=== PATIENT | female | born 1995 | race Two or more races ===

== ENCOUNTER 2023-03-12 13:52 | Outpatient (CLI) | payer OTHER | END 2023-03-12 13:53 | disposition home or self-care (01) | LOC: PRENATAL 13:52 | PROVIDERS: ATTEND Obstetrics & Gynecology Maternal & Fetal Medicine | DX: O36.80X0 Pregnancy with inconclusive fetal viability, not applicable or unspecified (principal); Z36.9 Encounter for antenatal screening, unspecified; Z36.82 Encounter for antenatal screening for nuchal translucency; O34.10 Maternal care for benign tumor of corpus uteri, unspecified trimester; Z3A.12 12 weeks gestation of pregnancy ==

== ENCOUNTER 2023-04-24 14:12 | Emergency (ER) | payer OTHER ==
[~2023-04-24] VITALS: Ht 160 cm; Wt 77.1 kg
[~2023-04-24 14:12] MED LIST: FOLIC ACID0.8 M1; PRENA1 TRUE CO1 EACH
== END 2023-04-24 17:05 | disposition home or self-care (01) ==
LOC: ER 14:14
DX: O26.892 Other specified pregnancy related conditions, second trimester (principal); Z3A.18 18 weeks gestation of pregnancy; J06.9 Acute upper respiratory infection, unspecified

== ENCOUNTER 2023-05-01 15:34 | Outpatient (CLI) | payer OTHER | END 2023-05-01 15:36 | disposition home or self-care (01) | LOC: PRENATAL 15:34 | PROVIDERS: ATTEND Obstetrics & Gynecology Maternal & Fetal Medicine | DX: O35.3XX0 Maternal care for (suspected) damage to fetus from viral disease in mother, not applicable or unspecified (principal); O44.00 Complete placenta previa NOS or without hemorrhage, unspecified trimester; Z3A.19 19 weeks gestation of pregnancy ==